=== PATIENT | male | born 1995 | race Caucasian/White ===

== ENCOUNTER 2021-03-27 17:04 | Emergency (ER) | payer MEDICAID ==
[~2021-03-27] VITALS: Ht 185.4 cm; Wt 82.7 kg
[2021-03-27 17:12] VITALS: BP 137/86
[2021-03-27] MEDS ORDERED: iohexol 300mg/ml 100ml inj. ONE (17:14)
[2021-03-27] MEDS ORDERED: bacitracin 15gm ointment TP ONE (17:15)
[2021-03-27] MEDS ORDERED: normal saline 1000ML IV soln IVB ONE (17:15)
[2021-03-27] MEDS ORDERED: HYDROmorphone 1 mg/ml syringe IV ONE ×2 (17:15→18:55)
[2021-03-27] MEDS ORDERED: ondansetron/PF 4mg/2ml inj IV ONE ×2 (17:15→18:55)
[2021-03-27] MEDS ORDERED: TETanus/Pertussis (Acell)/Diphther VAC/PF (Tdap-Adult) 0.5ml syringe IMVAC ONE (17:15)
[2021-03-27 17:51] LABS: BASOPHILS % (AUTO) 0.2 % (0-1); EOSINOPHILS % (AUTO) 0.1 % (0-6); HEMATOCRIT 40.6 % (42.0-52.0); LYMPHOCYTES # (AUTO) 1.1 X10'3 (1.1-4.8); LYMPHOCYTES % (AUTO) 9.5 % (21-51); MEAN CORPUSCULAR HGB CONC 34.6 g/dL (33.0-36.5); MEAN CORPUSCULAR VOLUME 92.5 FL (78-98); MEAN PLATELET VOLUME 7.6 FL (7.4-10.4); MONOCYTES # (AUTO) 0.7 X10'3 (0-0.9); MONOCYTES % (AUTO) 6.5 % (2-12); NEUTROPHILS # (AUTO) 9.5 X10'3 (1.8-7.7); NEUTROPHILS % (AUTO) 83.7 % (42-75); PLATELET COUNT 219 X10'3 (140-440); RED BLOOD COUNT 4.38 X10'6 (4.70-6.10); RED CELL DISTRIBUTION WIDTH 13.1 % (11.5-14.5); WHITE BLOOD COUNT 11.3 X10'3 (4.5-11.0)
[2021-03-27 18:03] LABS: ALANINE AMINOTRANSFERASE 41 U/L (12-78); ALBUMIN 4.4 G/DL (3.4-5.0); ALBUMIN/GLOBULIN RATIO 1.3 (1.1-1.5); ALKALINE PHOSPHATASE 64 IU/L (46-116); ANION GAP 7 (8-16); ASPARTATE AMINO TRANSFERASE 26 U/L (10-37); BILIRUBIN,TOTAL 0.4 MG/DL (0.1-1.0); BLOOD UREA NITROGEN 16 MG/DL (7-18); BUN/CREATININE RATIO 13.9 (5.4-32.0); CALCIUM 9.1 MG/DL (8.5-10.1); CHLORIDE 105 MMOL/L (99-107); CREATININE 1.15 MG/DL (0.60-1.10); GLUCOSE 99 MG/DL (70-104); POTASSIUM 4.7 MMOL/L (3.5-5.1); SODIUM 140 MMOL/L (135-145); TOTAL CARBON DIOXIDE 27.9 MMOL/L (24-32); TOTAL PROTEIN 7.7 G/DL (6.4-8.2); eGFR 76 ML/MIN
[2021-03-27 18:14] LABS: CKMB RELATIVE INDEX 1.2 RATIO (0-2.5); CREATINE KINASE 260 U/L (39-308)
[2021-03-27 18:15] LABS: ETHANOL < 0.010 GM/DL (0.0-0.010)
[2021-03-27] MEDS ORDERED: METH-797 PO (18:43)
[2021-03-27] MEDS ORDERED: ONDA4TAB12 PO (18:43)
[2021-03-27] MEDS ORDERED: HYDR-3972 PO (18:43)
[2021-03-27] MEDS ORDERED: HYDROcodone/acetaminophen 10/325mg tab PO ONE (18:55)
== END 2021-03-27 19:17 | disposition home or self-care (01) ==
LOC: ER 17:05
DX: S42.002A Fracture of unspecified part of left clavicle, initial encounter for closed fracture (principal); S20.212A Contusion of left front wall of thorax, initial encounter; S20.20XA Contusion of thorax, unspecified, initial encounter; S30.811A Abrasion of abdominal wall, initial encounter; M25.512 Pain in left shoulder; R20.0 Anesthesia of skin; Z79.899 Other long term (current) drug therapy; V86.56XA Driver of dirt bike or motor/cross bike injured in nontraffic accident, initial encounter; Y93.89 Activity, other specified; Y92.89 Other specified places as the place of occurrence of the external cause; Y99.8 Other external cause status
CPT/HCPCS: 29105; 36415; 71260; 74177; 80053; 80320; 82550; 82553; 83874; 84484; 85025; 86885; 86900; 86901; 90471; 90715; 96361; 96374; 96375; 96376; 99285; J1170; J2405; J7030; Q9967; 99284

== ENCOUNTER 2023-09-06 12:58 | Emergency (ER) | payer MEDICAID ==
[~2023-09-06] VITALS: Ht 175.3 cm; Wt 93.2 kg
[~2023-09-06 12:58] MED LIST: METH-797 PO; ONDA-243 PO
[2023-09-06 13:01] VITALS: TEMP 98.9
[2023-09-06 13:41] LABS: BASOPHILS % (AUTO) 0.3 % (0-1); EOSINOPHILS % (AUTO) 0.6 % (0-6); HEMATOCRIT 41.3 % (42.0-52.0); HEMOGLOBIN 14.3 g/dl (14.0-17.9); MEAN CORPUSCULAR HGB CONC 34.5 g/dL (33.0-36.5); MEAN CORPUSCULAR VOLUME 89.8 FL (78-98); MEAN PLATELET VOLUME 6.9 FL (7.4-10.4); MONOCYTES # (AUTO) 0.4 X10'3 (0-0.9); MONOCYTES % (AUTO) 5.8 % (2-12); NEUTROPHILS # (AUTO) 5.1 X10'3 (1.8-7.7); NEUTROPHILS % (AUTO) 67.3 % (42-75); PLATELET COUNT 204 X10'3 (140-440); RED CELL DISTRIBUTION WIDTH 12.7 % (11.5-14.5); WHITE BLOOD COUNT 7.5 X10'3 (4.5-11.0)
[2023-09-06 13:56] LABS: ALANINE AMINOTRANSFERASE 81 U/L (12-78); ALBUMIN 4.2 G/DL (3.4-5.0); ALBUMIN/GLOBULIN RATIO 1.3 (1.1-1.5); ALKALINE PHOSPHATASE 63 IU/L (46-116); ANION GAP 7 (8-16); ASPARTATE AMINO TRANSFERASE 56 U/L (10-37); BILIRUBIN,DIRECT 0.2 MG/DL (0-0.3); BILIRUBIN,TOTAL 0.8 MG/DL (0.1-1.0); BLOOD UREA NITROGEN 16 MG/DL (7-18); BUN/CREATININE RATIO 13.8 (10.0-20.0); CALCIUM 9.2 MG/DL (8.5-10.1); CHLORIDE 103 MMOL/L (99-107); CREATININE 1.16 MG/DL (0.60-1.10); GLUCOSE 93 MG/DL (70-104); LIPASE 17 U/L (16-77); POTASSIUM 4.2 MMOL/L (3.5-5.1); SODIUM 139 MMOL/L (135-145); TOTAL CARBON DIOXIDE 29.2 MMOL/L (24-32); TOTAL PROTEIN 7.5 G/DL (6.4-8.2); eCRCL 94 ML/MIN; eGFR 74 ML/MIN
[2023-09-06] MEDS ORDERED: ONDA-245 PO (14:07)
[2023-09-06] MEDS: ondansetron/PF 4mg/2ml inj IV ONE (14:08)
[2023-09-06] MEDS: normal saline 1000ml 1,000 ML IV ONE (14:08)
[2023-09-06] MEDS: normal saline 1000ML IV soln IVB ONE (14:08)
[2023-09-06 16:08] VITALS: BP 111/73; PULSE 56; RESP 15; O2SAT 100
[2023-09-06 16:29] LABS: BILIRUBIN,URINE NEGATIVE (Neg); CLARITY,URINE CLEAR (Clear); COLOR,URINE YELLOW (Yellow); GLUCOSE, URINE NEGATIVE (Neg); KETONES,URINE NEGATIVE (Neg); LEUKOCYTE ESTERASE ,URINE NEGATIVE (Neg); NITRITES, URINE NEGATIVE (Neg); OCCULT BLOOD,URINE NEGATIVE (Neg); PH,URINE 6.5 (4.8-8.0); PROTEIN,URINE NEGATIVE (Neg); UROBILINOGEN,URINE 0.2 E.U/dL (0.2-1.0)
[2023-09-06 16:35] LABS: UA COLLECTION TYPE NON-SPECIFIED
== END 2023-09-06 16:45 | disposition home or self-care (01) ==
LOC: ER 12:58
DX: N17.8 Other acute kidney failure (principal); R11.2 Nausea with vomiting, unspecified; E86.0 Dehydration; Z79.899 Other long term (current) drug therapy
CPT/HCPCS: 36415; 80048; 80076; 81003; 83690; 85025; 96361; 96374; 99283; J2405; J7030; 96360